=== PATIENT | female | born 1990 | race Caucasian/White ===

== ENCOUNTER 2018-07-10 12:09 | Emergency (ER) | payer OTHER ==
--- NOTE | 2018-07-10 12:22 | EDM.PDOC ---
ED HPI GENERAL MEDICAL PROBLEM - General Chief Complaint: Lower Extremity Injury/Pain Stated Complaint: TWISTED RIGHT FOOT, CAN MOVE IT OR WIGGLE TOES. Time Seen by Provider: 07/10/18 12:20 - History of Present Illness INITIAL COMMENTS - FREE TEXT/NARRATIVE: HISTORY AND PHYSICAL: History of present illness: Patient is a 27-year-old white female who presents with a chief complaint of right foot injury that occurred by blunt force trauma prior to arrival. She had pain and difficulty weightbearing since she denies other trauma or concern Review of systems: As per history of present illness and below otherwise all systems reviewed and negative. Past medical history: As per history of present illness and as reviewed below otherwise noncontributory. Surgical history: As per history of present illness and as reviewed below otherwise noncontributory. Social history: No reported history of drug or alcohol abuse. Family history: As per history of present illness and as reviewed below otherwise noncontributory. Physical exam: HEENT: Atraumatic, normocephalic, pupils reactive, negative for conjunctival pallor or scleral icterus, mucous membranes moist, throat clear, neck supple, nontender, trachea midline. Lungs: Clear to auscultation, breath sounds equal bilaterally, chest nontender. Heart: S1S2, regular, negative for clicks, rubs, or JVD. Abdomen: Soft, nondistended, nontender. Negative for masses or hepatosplenomegaly. Negative for costovertebral tenderness. Pelvis: Stable nontender. Genitourinary: Deferred. Rectal: Deferred. Extremities: Patient has pain and swelling over the dorsal aspect of her right foot is no gross deformity ankle is uninvolved Achilles tendons intact CMS and neurovascular exam are normal Neuro: Awake, alert, oriented. Cranial nerves II through XII unremarkable. Cerebellum unremarkable. Motor and sensory unremarkable throughout. Exam nonfocal. Diagnostics: X-ray right foot Therapeutics: Toradol 60 mg IM Impression: #1 acute right foot injury Definitive disposition and diagnosis as appropriate pending reevaluation and review of above. 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 ED EXAM, GENERAL - Physical Exam Exam: See Below (See dictation) Course - Vital Signs Last Recorded V/S: Last Vital Signs Temp 36.5 C 07/10/18 12:09 Pulse 120 H 07/10/18 12:09 Resp 18 07/10/18 12:09 BP 122/78 07/10/18 12:09 Pulse Ox 98 07/10/18 12:09 - Orders/Labs/Meds Orders: Active Orders 24 hr Category Date Time Status Foot 2V Rt [CR] Stat Exams 07/10/18 12:20 Taken Departure - Departure Time of Disposition: 13:11 Disposition: Home, Self-Care 01 Condition: Good Clinical Impression: Foot injury - Discharge Information *PRESCRIPTION DRUG MONITORING PROGRAM REVIEWED*: Not Applicable *COPY OF PRESCRIPTION DRUG MONITORING REPORT IN PATIENT GERA: Not Applicable Referrals: PCP,None [Primary Care Provider] - Forms: ED Department Discharge Additional Instructions: The following information is given to patients seen in the emergency department who are being discharged to home. This information is to outline your options for follow-up care. We provide all patients seen in our emergency department with a follow-up referral. The need for follow-up, as well as the timing and circumstances, are variable depending upon the specifics of your emergency department visit. If you don't have a primary care physician on staff, we will provide you with a referral. We always advise you to contact your personal physician following an emergency department visit to inform them of the circumstance of the visit and for follow-up with them and/or the need for any referrals to a consulting specialist. The emergency department will also refer you to a specialist when appropriate. This referral assures that you have the opportunity for followup care with a specialist. All of these measure are taken in an effort to provide you with optimal care, which includes your followup. Under all circumstances we always encourage you to contact your private physician who remains a resource for coordinating your care. When calling for followup care, please make the office aware that this follow-up is from your recent emergency room visit. If for any reason you are refused follow-up, please contact the [facility] emergency department at and asked to speak to the emergency department charge nurse. Avtar wrap/crutches as directed Motrin/Tylenol as directed follow-up primary medical doctor as needed as discussed and return as needed as discussed - My Orders Last 24 Hours: My Active Orders 07/10/18 12:20 Foot 2V Rt [CR] Stat - Assessment/Plan Last 24 Hours: My Active Orders 07/10/18 12:20 Foot 2V Rt [CR] Stat
[2018-07-10 12:52] VITALS: BP 122/78
--- NOTE | 2018-07-12 11:20 | CR ---
EXAM DATE: 07/10/18 PATIENT'S AGE: 27 Patient: IMMANUEL BRUNO Facility: [place], [place] Site . Site : 1990 Study: XRay Extremity Right foot [id number]/[id number] 1:02:56 PM Ordering Physician: Anne Kirkpatrick Final Report: INDICATION: Injury. TECHNIQUE: Two views of the right foot. FINDINGS: No acute fracture or dislocation. Joint spaces are maintained. Bony mineralization and alignment are normal. Soft tissues are unremarkable. IMPRESSION: Negative right foot. Dictated by Florencio Mitchell MD @ Jul 10 2018 1:33PM (Electronic Signature) Report Signed by Proxy. JEN
== END 2018-07-10 13:45 | disposition home or self-care (01) ==
LOC: MW.ED 12:09
DX: S99.921A Unspecified injury of right foot, initial encounter (principal); Z79.899 Other long term (current) drug therapy; W22.8XXA Striking against or struck by other objects, initial encounter
CPT/HCPCS: 73620-26-RT; 73620-RT; 99283

== ENCOUNTER 2019-11-20 15:31 | Emergency (ER) | payer BC ==
[2019-11-20] MEDS ORDERED: Sodium Chloride 0.9% 1,000 ML IV ONE (16:13)
[2019-11-20] MEDS ORDERED: Ketorolac 30 MG/ML SDV IVPUSH ONE (16:13)
[2019-11-20 16:37] LABS: BLOOD UREA NITROGEN,BUN 14 mg/dL (7.0-18.0); CARBON DIOXIDE,CO2 28.4 mmol/L (21.0-32.0); CHLORIDE,CL 98 mmol/L (98-107); GLUCOSE RANDOM 97 mg/dL (74-106); POTASSIUM,K 3.8 mmol/L (3.5-5.1); SODIUM,NA 136 mmol/L (136-145)
--- NOTE | 2019-11-20 16:59 | CR ---
Indication: Palpitations. Technique: Single AP portable view of the chest. Comparison: November 18, 2019. Findings: The heart is normal in size. The lungs are clear. No infiltrate, pleural effusion, or pneumothorax is identified. Impression: No acute cardiopulmonary process Dictated by Marisa Amin MD @ Nov 20 2019 4:50PM Signed by Dr. Marisa Amin @ Nov 20 2019 4:57PM
[2019-11-20] MEDS ORDERED: Iopamidol 755 MG/ML 200 ML Multipack Bottle IVPUSH STA (17:42)
--- NOTE | 2019-11-20 17:51 | CT ---
INDICATION: Elevated D-dimer. Shortness of breath. COMPARISON: Chest radiograph from earlier today TECHNIQUE: CT examination of the chest was performed with the uneventful intravenous administration of 60 cc of Isovue 370 while 3 mm thick axial sections were obtained through the pulmonary arteries. Please note that all CT scans at this facility use dose modulation, iterative reconstruction, and/or weight-based dosing when appropriate to reduce radiation dose to as low as reasonably achievable. FINDINGS: : There is no sign of pulmonary embolism, with normal enhancement and branching of the pulmonary arteries. There is mild patchy density scattered throughout the left lower lobe which could be either atelectasis or an early pneumonia. This is not evident on the previous chest radiograph, even in retrospect. The rest of the chest is clear. There is no sign of mediastinal or hilar mass or adenopathy. The heart is normal in appearance for the patient`s age, as are the aorta and other ascending great vessels. There is no sign of supraclavicular or axillary mass or adenopathy. The visualized superior liver, spleen, pancreas, kidneys, and adrenals are normal in appearance. The osseous structures are normal in appearance for the patient`s age. IMPRESSION: No sign of pulmonary embolism. Mild patchy density scattered throughout the left lower lobe, probably atelectasis, but cannot exclude pneumonia. Please note that all CT scans at this facility use dose modulation, iterative reconstruction, and/or weight-based dosing when appropriate to reduce radiation dose to as low as reasonably achievable. Dictated by Griffin Oneal MD @ Nov 20 2019 5:44PM Signed by Dr. Griffin Oneal @ Nov 20 2019 5:50PM
--- NOTE | 2019-11-20 18:02 | EDM.PDOC ---
ED HPI GENERAL MEDICAL PROBLEM - General Chief Complaint: Cardiovascular Problem Stated Complaint: . Time Seen by Provider: 11/20/19 15:36 - History of Present Illness INITIAL COMMENTS - FREE TEXT/NARRATIVE: HPI 29-year-old female presents for evaluation of several days of sore throat, mild ear fullness, and concern that she has been having an elevated heart rate for over one month; denies further symptoms. Unable to identify any provoking or relieving factors. Denies stimulant use. M/S/F/SocHx notable for: please see HPI; remainder reviewed with patient and in chart. ROS: Negative constitutional, eye, cardiovascular, pulmonary, GI, , MSK, skin , neurologic, psychiatric, endocrine unless noted in the HPI. Exam HR 130, RR 18, BP 152/94, T 36.2C, SaO2 96% on room air. Gen: Pleasant, non-toxic appearing, resting comfortably. HEENT: NC, AT, PEERL, EOMI. Oropharynx visually normal, neck supple, full BAKARI him, TMs with dependent serous effusions bilaterally. Resp: Clear to auscultation bilaterally, normal work of breathing, no accessory muscle usage. Card: Regular rate and rhythm with no murmurs, rubs, or gallops, extremities warm and well perfused. Parasternal long [id number] ultrasound without pericardial effusion. GI: Non-tender to palpation throughout all quadrants, no focal tenderness at McBurney's point, negative Wadsworth's sign, non-distended, no rebound or guarding. : No suprapubic tenderness to palpation. MSK: No visible deformities, strength and tone without visually appreciable deficit. Skin: Normal color with no visible lesions. Neuro: alert and oriented 3, no facial asymmetry, vision and hearing WNL. Psych: Mood and affect appropriate. Labs / Imaging: EKG: SR 112 bpm, no ST segment elevations or depressions, no LBBB, no LA segment depressions. CTA chest: no central pulmonary embolism. Mild patchy density scattered throughout the left lower lobe, probably atelectasis, but cannot exclude pneumonia. CXR: no acute cardiopulmonary disease process. Negative strep, negative influenza A and B. WBC 7.36, HB 16.0, d-dimer 0.74, sodium 136, potassium 3.8, hCG negative, TSH 1.54. MDM Previous chart, nursing note, labs, imaging, and vitals reviewed. A: 29-year-old female presents for evaluation of several days of sore throat, mild ear fullness, and concern that she has been having an elevated heart rate for over one month; denies further symptoms. DDx: dehydration, electrolyte abnormalities, hypothyroidism, pericarditis, myopericarditis, pericardial effusion, pneumonia, PE, influenza, sepsis. Evaluation: overall symptom constellation strongly consistent with viral process , favor influenza given high prevalence and the relative exclusion of the remainder the differential (a negative rapid strep is noted, however this is of low sensitivity). No clear evidence of a bacterial infection given the absence of leukocytosis or productive cough, however CT is concerned that the patient may have action. As such, the patients prescribed azithromycin and abundance of caution. No evidence of sepsis pathophysiology by labs, exam, and history. EKG is without evidence of conduction abnormality or arrhythmia, strongly doubt pericarditis or myopericarditis, labs without evidence of anemia, clinically significant electrolyte abnormalities, and the patient has a negative test. D-dimer mildly elevated (obtained after unremarkable plain film and relative exclusion remainder of differential). Subsequent CT PE without evidence of dissection, pulmonary embolism, or effusions. ED Course: 1 L NS and 30 mg Toradol given for initial symptom management. normalization of vital signs with hydration, remained stable and without new discernible symptoms throughout ED course. Disposition: discharge with PCP follow-up recommended. Impression: cough, malaise, tachycardia. 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: Endocrine/Metabolic History: Reports: Obesity/BMI 30+ - Infectious Disease History Infectious Disease History: Reports: None - Past Surgical History HEENT Surgical History: Reports: Tonsillectomy Social & Family History - Family History Family Medical History: Noncontributory - Tobacco Use Smoking Status *Q: Never Smoker Second Hand Smoke Exposure: No - Caffeine Use Caffeine Use: Reports: None Caffeine Use Comment: 2-3 drink/sday - Recreational Drug Use Recreational Drug Use: No ED ROS GENERAL - Review of Systems Review Of Systems: See Below ED EXAM, GENERAL - Physical Exam Exam: See Below Course - Vital Signs Last Recorded V/S: Last Vital Signs Temp 36.2 C 11/20/19 15:33 Pulse 94 11/20/19 17:39 Resp 18 11/20/19 17:39 BP 129/86 11/20/19 17:39 Pulse Ox 99 11/20/19 17:39 - Orders/Labs/Meds Orders: Active Orders 24 hr Category Date Time Status CULTURE STREP A CONFIRMATION [] Stat Lab 11/20/19 15:35 Results STREP SCRN A RAPID W CULT CONF [RM] Stat Lab 11/20/19 15:35 Results Labs: Laboratory Tests 11/20/19 11/20/19 11/20/19 Range/Units 15:35 15:35 15:35 WBC 7.36 (4.0-11.0) K/uL RBC 5.06 (4.30-5.90) M/uL Hgb 16.0 (12.0-16.0) g/dL Hct 47.2 H (36.0-46.0) % MCV 93.3 (80.0-98.0) fL MCH 31.6 (27.0-32.0) pg MCHC 33.9 (31.0-37.0) g/dL RDW Std Deviation 40.6 (28.0-62.0) fl RDW Coeff of Kyara 12 (11.0-15.0) % Plt Count 234 (150-400) K/uL MPV 9.60 (7.40-12.00) fL Neut % (Auto) 62.3 (48.0-80.0) % Lymph % (Auto) 27.0 (16.0-40.0) % Jerome % (Auto) 9.9 (0.0-15.0) % Eos % (Auto) 0.7 (0.0-7.0) % Baso % (Auto) 0.1 (0.0-1.5) % Neut # (Auto) 4.6 (1.4-5.7) K/uL Lymph # (Auto) 2.0 (0.6-2.4) K/uL Jerome # (Auto) 0.7 (0.0-0.8) K/uL Eos # (Auto) 0.1 (0.0-0.7) K/uL Baso # (Auto) 0.0 (0.0-0.1) K/uL Nucleated RBC % 0.0 /100WBC Nucleated RBCs # 0 K/uL D-Dimer, Quantitative (0.0-0.50) mg/L FEU Sodium 136 (136-145) mmol/L Potassium 3.8 (3.5-5.1) mmol/L Chloride 98 (98-107) mmol/L Carbon Dioxide 28.4 (21.0-32.0) mmol/L BUN 14 (7.0-18.0) mg/dL Creatinine 1.0 (0.6-1.0) mg/dL Est Cr Clr Drug Dosing 88.15 mL/min Estimated GFR (MDRD) > 60.0 ml/min Glucose 97 (74-106) mg/dL Calcium 10.0 (8.5-10.1) mg/dL Magnesium 2.2 (1.8-2.4) mg/dL TSH 3rd Generation 1.54 (0.36-3.74) uIU/mL HCG, Qual NEGATIVE (NEG) 11/20/19 Range/Units 15:35 WBC (4.0-11.0) K/uL RBC (4.30-5.90) M/uL Hgb (12.0-16.0) g/dL Hct (36.0-46.0) % MCV (80.0-98.0) fL MCH (27.0-32.0) pg MCHC (31.0-37.0) g/dL RDW Std Deviation (28.0-62.0) fl RDW Coeff of Kyara (11.0-15.0) % Plt Count (150-400) K/uL MPV (7.40-12.00) fL Neut % (Auto) (48.0-80.0) % Lymph % (Auto) (16.0-40.0) % Jerome % (Auto) (0.0-15.0) % Eos % (Auto) (0.0-7.0) % Baso % (Auto) (0.0-1.5) % Neut # (Auto) (1.4-5.7) K/uL Lymph # (Auto) (0.6-2.4) K/uL Jerome # (Auto) (0.0-0.8) K/uL Eos # (Auto) (0.0-0.7) K/uL Baso # (Auto) (0.0-0.1) K/uL Nucleated RBC % /100WBC Nucleated RBCs # K/uL D-Dimer, Quantitative 0.74 H (0.0-0.50) mg/L FEU Sodium (136-145) mmol/L Potassium (3.5-5.1) mmol/L Chloride (98-107) mmol/L Carbon Dioxide (21.0-32.0) mmol/L BUN (7.0-18.0) mg/dL Creatinine (0.6-1.0) mg/dL Est Cr Clr Drug Dosing mL/min Estimated GFR (MDRD) ml/min Glucose (74-106) mg/dL Calcium (8.5-10.1) mg/dL Magnesium (1.8-2.4) mg/dL TSH 3rd Generation (0.36-3.74) uIU/mL HCG, Qual (NEG) Meds: Medications Discontinued Medications Generic Name Dose Route Start Last Admin Trade Name Freq PRN Reason Stop Dose Admin Sodium Chloride 1,000 mls @ 1,000 mls/hr 11/20/19 16:13 11/20/19 16:30 Normal Saline IV 11/20/19 17:12 1,000 mls/hr .Bolus ONE Administration Iopamidol 50 ml 11/20/19 17:42 11/20/19 17:42 Isovue Multipack-370 (76%) IVPUSH 11/20/19 17:43 50 ml ONETIME STA Administration Ketorolac Tromethamine 30 mg 11/20/19 16:13 11/20/19 16:30 Toradol IVPUSH 11/20/19 16:14 30 mg ONETIME ONE Administration Departure - Departure Time of Disposition: 18:01 Disposition: Home, Self-Care 01 Clinical Impression: Cough, Malaise, Tachycardia Referrals: PCP,Unobtain [Primary Care Provider] - Additional Instructions: You were in seen in the [facility] Emergency Department for evaluation of sore throat, racing heart rate, and malaise, are believed to be dehydrated and may have a viral process, however bacterial pneumonia cannot be fully excluded in your been prescribed azithromycin. You may take ibuprofen and acetaminophen instructed below for treatment of discomfort, please also stay well-hydrated]. Please read and follow all of the instructions below. Please follow up with your primary care physician and 2-3 days for repeat evaluation further care as needed. When calling for follow-up care, please make the office aware that this follow-up is from your recent emergency room visit. If for any reason you are refused follow-up, please contact the [facility] Emergency Department at and asked to speak to the emergency department charge nurse. Your care today was limited to identifying and treating emergent medical problems only. Many people have subtle differences in their test results that require follow up with their outpatient physician(s) to correctly determine if this represents a normal variation or concerning abnormality with respect to your specific health. The care given to you today was limited to identifying and treating emergent medical problems - you need to request a copy of all of your medical records from today's visit and follow up with your outpatient physician(s) to review both today's visit and your overall health. If you have any new symptoms or if you are at all concerned about your health please return immediately to the emergency department. Viral Syndrome You are believed to have a viral infection of the respiratory tract. These infections may cause chills, fever, cough, headache, body aches, and sore throat. Depending upon the virus, you may have mild to more severe symptoms. The worst symptoms typically last a 2-5 days. Cough and fatigue may continue for as long as 7 to 10 days. Viral respiratory infections are highly contagious. Symptoms will not be reduced or improved by taking an antibiotic. Antibiotics are medications that kill bacteria, not viruses. Rarely these infections can lead to an infection of the sinuses, lungs, or middle ear. However antibiotics at this point in your illness antibiotics will not help prevent these uncommon complications. Home Care Instructions: * Care for viral infections will not shorten your illness but can help reduce your symptoms. * Please stay well hydrated and attempt to get plently of sleep. * You may take both ibuprofen and acetaminophen as directed on the bottle for relief of fever, chills, and muscle aches. * If you have a severe cough you may take an [id number]-[id number] cough medication containing dextromethorphan. * Continue to cover your cough and wash your hands often. * Read the package instructions and warnings on any medication that you are taking. Return to the Emergency Department if you have: * Fast breathing, trouble breathing, or shortness of breath * Bluish or gilliam skin color * Not drinking enough fluids * Severe or persistent vomiting * Not waking up or not interacting * Pain or pressure in the chest or abdomen * Sudden dizziness * Confusion * Or if you are otherwise concerned about your health Please follow-up your primary care provider or return to the emergency department if: * Your symptoms fail to improve over the next 4-5 days. * Your symptoms improve but then significantly worsen - this may be a sign of a bacterial infection which will need to be treated. You are otherwise concerned about your health. Azithromycin (Brand Names: Zmax) Please take this medication as prescribed. Please take the medication for the full duration of the precription. If you feel you are experiencing a side effect, please call your physician or the emergency department. Azithromycin Side Effects: Stomach upset, diarrhea/loose stools, nausea, vomiting, or abdominal pain may occur. If any of these effects persist or worsen, tell your doctor or pharmacist promptly. Tell your doctor right away if any of these unlikely but serious side effects occur: hearing changes (such as decreased hearing, deafness), eye problems (such as drooping eyelids, blurred vision), difficulty speaking/ swallowing, muscle weakness, signs of liver problems (such as unusual tiredness , persistent nausea/vomiting, severe stomach/abdominal pain, yellowing eyes/skin , dark urine). Get medical help right away if any of these rare but serious side effects occur: fast/irregular heartbeat, severe dizziness, fainting. This medication may rarely cause a severe intestinal condition (Clostridium difficile-associated diarrhea) due to a resistant bacteria. This condition may occur during treatment or weeks to months after treatment has stopped. Do not use anti-diarrhea products or narcotic pain medications if you have any of the following symptoms because these products may make them worse. Tell your doctor right away if you develop: persistent diarrhea, abdominal or stomach pain/ cramping, blood/mucus in your stool. Use of this medication for prolonged or repeated periods may result in oral thrush or a new yeast infection. Contact your doctor if you notice white patches in your mouth, a change in vaginal discharge, or other new symptoms. A very serious allergic reaction to this drug is rare. However, get medical help right away if you notice any symptoms of a serious allergic reaction, including: rash, itching/swelling (especially of the face/tongue/throat), severe dizziness, trouble breathing. An allergic reaction to this medication may return even if you stop the drug. If you have an allergic reaction, continue to watch for any of the above symptoms for several days after your last dose. This is not a complete list of possible side effects. If you notice other effects not listed above, contact your doctor or pharmacist. Azithromycin may cause a condition that affects the heart rhythm (QT prolongation). QT prolongation can rarely cause serious (rarely fatal) fast/ irregular heartbeat and other symptoms (such as severe dizziness, fainting) that need medical attention right away. The risk of QT prolongation may be increased if you have certain medical conditions or are taking other drugs that may cause QT prolongation. Before using azithromycin, tell your doctor or pharmacist of all the drugs you take and if you have any of the following conditions: certain heart problems (heart failure, slow heartbeat, QT prolongation in the EKG), family history of certain heart problems (QT prolongation in the EKG, sudden cardiac ). Low levels of potassium or magnesium in the blood may also increase your risk of QT prolongation. This risk may increase if you use certain drugs (such as diuretics/"water pills") or if you have conditions such as severe sweating, diarrhea, or vomiting. Talk to your doctor about using azithromycin safely. Many drugs besides azithromycin may affect the heart rhythm (QT prolongation ), including amiodarone, disopyramide, dofetilide, dronedarone, ibutilide, pimozide, procainamide, quinidine, sotalol, among others. This drug passes into breast milk. Consult your doctor before breast- feeding. Although most antibiotics are unlikely to affect hormonal control such as pills, patch, or ring, a few antibiotics (such as rifampin, rifabutin) can decrease their effectiveness. This could result in . If you use hormonal control, ask your doctor or pharmacist for more details. You make take over the counter Acetaminophen (Tylenol) and Ibuprofen (Motrin or Aleve) as directed below for relief of pain. Take 600 mg of ibuprofen (three 200 mg tablets) with a glass of water every 6-8 hours as needed for pain or fever. Do not take if you have ulcers, GI bleeding, are , or are allergic to ibuprofen. Take 1,000 mg of acetaminophen (two 500 mg tablets) with a glass of water every 6-8 hours as needed for pain. Do not take if you are allergic to acetaminophen. If you have liver disease, please reduce your dose to a maximum of 2,000 mg per day. You can take these medications at the same time or on separate schedules. Do not take for more than 10 days. Do not take with alcohol or other acetaminophen containing medications. This medication may cause a mildly upset stomach, if so take it with a small snack. Stop taking it if you have persistent abdominal pain, heartburn, or any stomach pain. Do not take this medication if you have known ulcers. Please read the warnings at the end of this document regarding these medications. IBUPROFEN WARNING: This drug may infrequently cause serious (rarely fatal) bleeding from the stomach or intestines. Also, related drugs rarely have caused blood clots to form, resulting in heart attacks and strokes. This medication might also rarely cause similar problems. Talk to your doctor or pharmacist about the benefits and risks of treatment, as well as other possible medication choices. If you notice any of the following rare but very serious side effects, stop taking ibuprofen and seek immediate medical attention: black stools, persistent stomach/abdominal pain, vomit that looks like coffee grounds, chest pain, weakness on one side of the body, sudden vision changes, slurred speech. IBUPROFEN SIDE EFFECTS: Upset stomach, nausea, vomiting, heartburn, headache, diarrhea, constipation, drowsiness, and dizziness may occur. If any of these effects persist or worsen, notify your doctor or pharmacist promptly. If your doctor has directed you to use this medication, remember that he or she has judged that the benefit to you is greater than the risk of side effects. Many people using this medication do not have serious side effects. Tell your doctor immediately if any of these serious side effects occur: stomach pain, swelling of the hands or feet, sudden or unexplained weight gain, ringing in the ears ( tinnitus). Tell your doctor immediately if any of these unlikely but serious side effects occur: vision changes, rapid or pounding heartbeat, easy bruising or bleeding, difficult/painful swallowing. Tell your doctor immediately if any of these highly unlikely but very serious side effects occur: change in amount of urine, severe headache, very stiff neck, mental/mood changes, persistent sore throat or fever. This drug may rarely cause serious (possibly fatal) liver disease. If you notice any of the following highly unlikely but very serious side effects, stop taking ibuprofen and consult your doctor or pharmacist immediately: yellowing eyes and skin, dark urine, unusual/extreme tiredness. An allergic reaction to this drug is unlikely, but seek immediate medical attention if it occurs. Symptoms of an allergic reaction include: rash, itching/ swelling (especially of the face/tongue/throat), severe dizziness, trouble breathing. This is not a complete list of possible side effects. ACETAMINOPHEN SIDE EFFECTS: This drug usually has no side effects. If you do not have liver problems, the maximum dose of acetaminophen for adults is 4 grams per day (4000 milligrams). Taking more than the maximum daily amount may cause serious (possibly fatal) liver damage. Get medical help right away if you have any of the following symptoms of liver damage: persistent nausea/vomiting, extreme tiredness, stomach/abdominal pain, yellowing eyes/skin, dark urine. If you have liver problems, consult your doctor or pharmacist for a safe dosage of this medication. A very serious allergic reaction to this drug is rare. However , get medical help right away if you notice any symptoms of a serious allergic reaction, including: rash, itching/swelling (especially of the face/tongue/ throat), severe dizziness, trouble breathing. This is not a complete list of possible side effects. If you notice other effects not listed above, contact your doctor or pharmacist. DRUG INTERACTIONS: Your healthcare professionals (e.g., doctor or pharmacist) may already be aware of any possible drug interactions and may be monitoring you for it. Do not start, stop or change the dosage of any medicine before checking with them first. This drug should not be used with the following medications because very serious interactions may occur: cidofovir, ketorolac. If you are currently using any of these medications listed above, tell your doctor or pharmacist before starting ibuprofen. Before using this medication, tell your doctor or pharmacist of all prescription and nonprescription/herbal products you may use, especially of: anti-platelet drugs (e.g., cilostazol, clopidogrel), oral bisphosphonates (e.g., alendronate), other medications for arthritis (e.g., aspirin, methotrexate), "blood thinners" (e.g., enoxaparin, heparin, warfarin), corticosteroids (e.g., prednisone), cyclosporine, desmopressin, high blood pressure drugs (including MANUEL inhibitors such as captopril, angiotensin II receptor antagonists such as losartan, and beta- blockers such as metoprolol), lithium, pemetrexed, "water pills" (diuretics such as furosemide, hydrochlorothiazide, triamterene). Check all prescription and nonprescription medicine labels carefully for other pain/fever drugs ( NSAIDs such as aspirin, celecoxib, naproxen). These drugs are similar to ibuprofen, so taking one of these drugs while also taking ibuprofen may increase your risk of side effects. Consult your doctor or pharmacist for more details. However, if your doctor has prescribed low doses of aspirin to prevent heart attack or stroke (usually at dosages of 81-325 milligrams a day), you should continue to take the aspirin. Daily use of ibuprofen may decrease aspirin 's ability to prevent heart attack/stroke. Talk to your doctor about using a different medication (e.g., acetaminophen) to treat pain/fever. If you must take ibuprofen, talk to your doctor about possibly taking immediate-release aspirin (not enteric-coated) while also taking the ibuprofen dose apart from your aspirin dose. Do not increase your daily dose of aspirin or change the way you take aspirin/other medications without your doctor's approval. This document does not contain all possible interactions. Therefore, before using this product, tell your doctor or pharmacist of all the products you use. Keep a list of all your medications with you, and share the list with your doctor and pharmacist. Prescriptions: If you are uninsured or have financial difficulties with filling your prescription(s), you may consider using a free pharmacy discount service such as [employer] ([employer]) or [employer] ([employer]). These services allow you to search for a medication on your phone (or computer) and obtain a coupon that usually has a significant discount from the list alicea at a pharmacy. Your physician as well as [facility] does not have a financial relationship with either of these services. You may also wish to speak with your physician to determine if lower cost prescriptions are possible. Obtaining primary care: 1. [facility] provides pediatrics (children), family medicine (children, adults, and some obstetrical care), and internal medicine (adults). Further specialty care is also available. Same day appointments are available. They may be contacted at [phone] and are open Thursday through Thursday 8 AM to 5 PM. The [facility] clinics are located at [facility], [address], [place] [address]. 2. [facility] offers family medicine, internal medicine, womens health, and further specialty care. [facility] may be contacted at [phone]. [facility] [address] [address]. 3. If you have health insurance, please also contact your insurer for a list of accepting providers under your policy, you may contact these providers for further health care. Occupational health: Work related injuries may consider following up with [facility], . Occupational health services are located at [address] [place] [id number] and are open Thursday through Thursday from 7: 30 am to 5:00 pm. Obstetrical and Gynecological Care: [facility], , Thursday through Thursday 8 AM to 5 PM. [address], [place] [address]. Eyecare: If you have an eye injury you should follow up with your welfare eligibility interviewer or with [facility], at [phone] or [phone] , they are located at [address] [place] [address]. Sepsis Event Note - Evaluation Sepsis Screening Result: No Definite Risk - Focused Exam Vital Signs: Vital Signs Temp Pulse Resp BP Pulse Ox 11/20/19 17:39 94 18 129/86 99 11/20/19 16:32 85 18 148/94 H 98 11/20/19 15:42 100 16 148/94 H 98 11/20/19 15:33 36.2 C 130 H 18 152/94 H 96 Date Exam was Performed: 11/20/19 Time Exam was Performed: 18:00 - My Orders Last 24 Hours: My Active Orders 11/20/19 15:35 CULTURE STREP A CONFIRMATION [RM] Stat STREP SCRN A RAPID W CULT CONF [RM] Stat - Assessment/Plan Last 24 Hours: My Active Orders 11/20/19 15:35 CULTURE STREP A CONFIRMATION [RM] Stat STREP SCRN A RAPID W CULT CONF [RM] Stat
[2019-11-20 18:29] VITALS: BP 130/87; PULSE 87
== END 2019-11-20 18:29 | disposition home or self-care (01) ==
LOC: MW.ED 15:31
DX: R00.0 Tachycardia, unspecified (principal); R05 Cough; R53.81 Other malaise; E66.9 Obesity, unspecified; Z68.31 Body mass index [BMI] 31.0-31.9, adult
CPT/HCPCS: 71045; 71275; 80048; 83735; 84443; 84703; 85025; 85379; 87081; 87804; 87880; 93005; 96361; 96374; 99284; J1885; J7030; Q9967

== ENCOUNTER 2021-12-11 05:21 | Inpatient (IN) | payer BC ==
[~2021-12-11 05:21] MED LIST: Acetaminophen/oxyCODONE 325-5 MG Tab PO PRN; Albuterol 0.083% 2.5 MG/3 ML Neb Soln NEB PRN; Citric Acid/Sodium Citrate Solution 30 ML Cup PO ONE; HYDROmorphone 1 MG/ML Syringe IVPUSH PRN; Metoclopramide 10 MG/2 ML SDV IVPUSH PRN; Morphine 4 MG/ML VIAL IVPUSH PRN; Nalbuphine 10 MG/1 ML Vial IVPUSH PRN; Naloxone 0.4 MG/ML SDV IVPUSH PRN; Ondansetron 4 MG/2 ML SDV IVPUSH PRN; Oxytocin/0.9 % Sodium Chloride 30 UNIT/500 ML BAG IV SCH; Sodium Chloride 0.9% 10 ML Syringe FLUSH PRN; Sodium Chloride 0.9% 2.5 ML Syringe FLUSH PRN; Sodium Chloride 0.9% 20 ML SDV IV PRN; diphenhydrAMINE 50 MG/ML SDV IVPUSH PRN; fentaNYL 100 MCG/2 ML SDV IVPUSH PRN
[2021-12-11] MEDS: Lactated Ringers 1,000 ML IV SCH ×2 (05:45→07:07)
[2021-12-11] MEDS ORDERED: Ondansetron 4 MG/2 ML SDV ONE (07:02)
[2021-12-11] MEDS ORDERED: Morphine PF 10 MG/10 ML SDV ONE (07:02)
[2021-12-11] MEDS ORDERED: Oxytocin 10 Units/1 ML SDV ONE (07:02)
[2021-12-11] MEDS ORDERED: fentaNYL 100 MCG/2 ML SDV ONE (07:02)
[2021-12-11] MEDS ORDERED: Ropivacaine 0.5% 5 MG/ML 30 ML SDV ONE (07:16)
[2021-12-11] MEDS ORDERED: ceFAZolin 2 GM in Premix Bag 1 BAG IV ONE (08:00)
[2021-12-11] MEDS ORDERED: Acetaminophen/oxyCODONE 325-5 MG Tab PO PRN (08:46)
[2021-12-11] MEDS ORDERED: Aluminum Hydroxide/Magnesium Hydroxide/Simethicone XS Susp 30 ML Cup PO PRN (08:46)
[2021-12-11] MEDS ORDERED: Lanolin 100% Cream 7 GM Tube TOP PRN (08:46)
[2021-12-11] MEDS ORDERED: Methylergonovine 0.2 MG/1 ML Amp IM PRN (08:46)
[2021-12-11] MEDS ORDERED: Oxytocin 10 Units/1 ML SDV IM PRN (08:46)
[2021-12-11] MEDS ORDERED: Ondansetron 4 MG/2 ML SDV IVPUSH PRN (08:46)
[2021-12-11] MEDS ORDERED: Tranexamic Acid 1,000 MG in Sodium Chloride 0.9% 100 ML IV PRN (08:46)
[2021-12-11] MEDS ORDERED: diphenhydrAMINE 50 MG/ML SDV IVPUSH PRN (08:46)
[2021-12-11] MEDS ORDERED: Misoprostol 200 MCG Tab RECTAL PRN (08:46)
[2021-12-11] MEDS ORDERED: Bisacodyl 10 MG Supp RECTAL PRN (08:46)
[2021-12-11] MEDS ORDERED: Lactated Ringers 1,000 ML IV SCH (09:00)
[2021-12-11] MEDS ORDERED: Meperidine PF 25 MG/ML SDV IVPUSH ONE (09:49)
[2021-12-11] MEDS: Simethicone 80 MG Tab.Chew PO SCH ×2 (12:41→18:21)
[2021-12-11] MEDS: Ketorolac 30 MG/ML SDV IVPUSH SCH ×2 (15:21→20:54)
[2021-12-11] MEDS: Docusate Sodium 100 MG Cap PO SCH (20:54)
[2021-12-12] MEDS: Simethicone 80 MG Tab.Chew PO SCH ×5 (00:01→23:51)
[2021-12-12] MEDS: Ketorolac 30 MG/ML SDV IVPUSH SCH ×3 (03:40→15:13)
[2021-12-12] MEDS: Docusate Sodium 100 MG Cap PO SCH ×3 (09:30→20:43)
[2021-12-12] MEDS: Acetaminophen/oxyCODONE 325-5 MG Tab PO PRN ×3 (09:54→20:44)
[2021-12-12] MEDS ORDERED: Ketorolac 30 MG/ML SDV ONE (15:08)
[2021-12-12] MEDS: Ibuprofen 800 MG Tab PO PRN (23:48)
[2021-12-13] MEDS: Acetaminophen/oxyCODONE 325-5 MG Tab PO PRN ×3 (04:55→12:22)
[2021-12-13] MEDS: Simethicone 80 MG Tab.Chew PO SCH ×2 (05:50→12:32)
[2021-12-13] MEDS: Docusate Sodium 100 MG Cap PO SCH (08:16)
[2021-12-13] MEDS: Ibuprofen 800 MG Tab PO PRN (08:16)
[2021-12-13 12:45] VITALS: BP 136/77; PULSE 94
== END 2021-12-13 13:20 | disposition home or self-care (01) | DRG 540 ==
LOC: MW.OB 05:21
PROVIDERS: ADMIT Obstetrics & Gynecology; ATTEND Obstetrics & Gynecology
PROC: 10D00Z1 Extraction of Products of Conception, Low, Open Approach (ICD-10-PCS; principal; 2021-12-11)
DX: O36.63X0 Maternal care for excessive fetal growth, third trimester, not applicable or unspecified (principal); Z3A.39 39 weeks gestation of pregnancy; Z37.0 Single live birth
CPT/HCPCS: 01961; 36415; 64488; 85014; 85018; 85027; 86592; 86850; 86900; 86901; A9270-GY; J0690; J1885; J2175; J2270; J2370; J2405; J2590; J2795; J3010; J7120; U0002

== ENCOUNTER 2025-06-26 07:31 | Observation (INO) | payer BC ==
[2025-06-26] MEDS ORDERED: Lidocaine 2% 11 ML Jelly Filled Syringe ONE (07:38)
[2025-06-26] MEDS ORDERED: fentaNYL 250 MCG/5 ML SDV ONE ×2 (07:41→09:18)
[2025-06-26] MEDS ORDERED: propofoL 500 MG/50 ML 50 ML ONE ×3 (07:41→10:35)
[2025-06-26] MEDS ORDERED: Ketamine HCL/NACL, ISO-OSM 50 MG/5 ML Syringe ONE ×2 (07:41→09:36)
[2025-06-26] MEDS ORDERED: Propofol 200 MG/20 ML SDV ONE (07:41)
[2025-06-26] MEDS ORDERED: dexmedeTOMIDine HCl 200 MCG/2 ML SDV ONE (07:42)
[2025-06-26] MEDS ORDERED: Ropivacaine 0.5% 5 MG/ML 30 ML SDV ONE (07:48)
[2025-06-26] MEDS ORDERED: Morphine 10 MG/ML SDV ONE (07:50)
[2025-06-26] MEDS: Scopalamine 1mg/3day Transdermal Patch TOP ONE (08:12)
[2025-06-26] MEDS: Lactated Ringers 1,000 ML IV SCH (08:12)
[2025-06-26] MEDS ORDERED: Ondansetron 4 MG/2 ML SDV ONE ×2 (08:23→11:19)
[2025-06-26] MEDS ORDERED: Ketorolac 30 MG/ML SDV ONE (08:23)
[2025-06-26] MEDS ORDERED: Dexamethasone 4 MG/ML 5 ML MDV ONE (08:23)
[2025-06-26 08:38] LABS: MEAN PLATELET VOLUME 9.5 fL (9.4-12.3); NRBC ABSOLUTE 0.00 K/uL (0.00-0.02); NRBC PERCENT 0.0 /100WBC (0.0-0.2); PLATELET COUNT,PLT 254 K/uL (150-400); RED BLOOD CELL COUNT 4.87 M/uL (4.10-5.30); WHITE BLOOD CELL COUNT,WBC 6.89 K/uL (3.9-11.3)
[2025-06-26 08:48] LABS: BLOOD UREA NITROGEN,BUN 13.0 mg/dL (7.0-18.0); CARBON DIOXIDE,CO2 28.1 mmol/L (21.0-32.0); CHLORIDE,CL 105.0 mmol/L (98-107); CREATININE 1.0 mg/dL (0.6-1.0); EST CRCL DRUG DOSING (CG) 84.1 mL/min; ESTIMATED GFR 75.0 mL/min (>60); GLUCOSE RANDOM 93.0 mg/dL (74-106); POTASSIUM,K 3.7 mmol/L (3.5-5.1); SODIUM,NA 140.0 mmol/L (136-145)
[2025-06-26] MEDS ORDERED: fentaNYL 100 MCG/2 ML SDV ONE (10:01)
[2025-06-26] MEDS ORDERED: Magnesium Sulfate (4.06 MEQ/ML) 5 GM/10 ML SDV ONE (10:29)
[2025-06-26] MEDS ORDERED: Fluorescein 5 ML Vial ONE (10:37)
[2025-06-26] MEDS ORDERED: Ondansetron 4 MG/2 ML SDV IVPUSH PRN (11:29)
[2025-06-26] MEDS ORDERED: Ketorolac 30 MG/ML SDV IVPUSH PRN (11:29)
[2025-06-26] MEDS ORDERED: Promethazine 25 MG/ML SDV IM PRN (11:29)
[2025-06-26] MEDS ORDERED: Lactated Ringers 1,000 ML IV SCH (11:30)
[2025-06-26] MEDS: Ketorolac 30 MG/ML SDV IVPUSH ONE (13:35)
[2025-06-26] MEDS: Acetaminophen/oxyCODONE 325-5 MG Tab PO PRN ×2 (13:41→16:13)
[2025-06-27 06:08] LABS: BASOPHILS ABSOLUTE AUTO 0.02 K/uL (0.00-0.20); BASOPHILS PERCENT AUTO 0.2 % (0.0-1.0); EOSINOPHILS ABSOLUTE AUTO 0.02 K/uL (0.00-0.45); EOSINOPHILS PERCENT AUTO 0.2 % (0.0-6.0); IMMATURE GRAN ABSOLUTE AUTO 0.03 K/uL (0.00-0.05); IMMATURE GRAN PERCENT AUTO 0.3 % (0.0-0.4); LYMPHOCYTES ABSOLUTE AUTO 2.28 K/uL (1.00-4.80); LYMPHOCYTES PERCENT AUTO 20.6 % (24.0-44.0); MEAN PLATELET VOLUME 9.8 fL (9.4-12.3); MONOCYTES ABSOLUTE AUTO 1.14 K/uL (0.00-0.80); MONOCYTES PERCENT AUTO 10.3 % (0.0-8.0); NEUTROPHILS ABSOLUTE AUTO 7.56 K/uL (1.80-7.70); NEUTROPHILS PERCENT AUTO 68.4 % (41.0-71.0); NRBC ABSOLUTE 0.00 K/uL (0.00-0.02); NRBC PERCENT 0.0 /100WBC (0.0-0.2); PLATELET COUNT,PLT 207 K/uL (150-400); RED BLOOD CELL COUNT 3.32 M/uL (4.10-5.30); WHITE BLOOD CELL COUNT,WBC 11.05 K/uL (3.9-11.3)
[2025-06-27 06:31] LABS: BLOOD UREA NITROGEN,BUN 12.0 mg/dL (7.0-18.0); CARBON DIOXIDE,CO2 26.6 mmol/L (21.0-32.0); CHLORIDE,CL 106.0 mmol/L (98-107); CREATININE 1.0 mg/dL (0.6-1.0); EST CRCL DRUG DOSING (CG) 84.1 mL/min; ESTIMATED GFR 75.0 mL/min (>60); GLUCOSE RANDOM 115.0 mg/dL (74-106); POTASSIUM,K 3.7 mmol/L (3.5-5.1); SODIUM,NA 138.0 mmol/L (136-145)
[2025-06-27 12:57] VITALS: BP 109/59; PULSE 70
== END 2025-06-27 11:30 | disposition home or self-care (01) ==
LOC: MW.SDS 07:31 → MW.MS 12:38
PROVIDERS: ADMIT Obstetrics & Gynecology; ATTEND Obstetrics & Gynecology
DX: N87.1 Moderate cervical dysplasia (principal); N94.6 Dysmenorrhea, unspecified; E66.9 Obesity, unspecified; Z68.31 Body mass index [BMI] 31.0-31.9, adult; Z79.899 Other long term (current) drug therapy
CPT/HCPCS: 36415; 58552; 64488; 80048; 84703; 85025; 85027; 86850; 86900; 86901; A9270; J0690; J1100; J1308; J2272; J2704; J2795; J3010; J3475; J7120; 00944; J0665; J1885; J2405; J3490